=== PATIENT | female | born 1965 | race American Indian/Alaskan Native ===

== ENCOUNTER 2017-10-04 10:39 | Outpatient (CLI) | payer OTHER ==
--- NOTE | 2017-10-04 13:04 | Mammography Report ---
BILATERAL DIGITAL DIAGNOSTIC MAMMOGRAM with CAD and LEFT BREAST ULTRASOUND: 10/04/17 CLINICAL: Left breast pain. COMPARISON:None available. FINDINGS: The breasts are heterogeneously dense, which may obscure small masses.No mass, architectural distortion or suspicious calcifications. Ultrasound of the left breast (including all four quadrants and the retroareolar area) was performed and demonstrated normal fibroglandular and fatty structures. No mass, cyst or shadowing. A left axillary lymph node with central fat a benign morphology measures 1.3 x 0.8 x 0.6 cm. The lymph node is tender to palpation and correlates with the area of pain. IMPRESSION: Negative mammogramand negative left breast ultrasound. A benign left axillary lymph node correlates with the source of pain. BI-RADS CATEGORY: 2 -- Benign RECOMMENDATION: Clinical followup and routine mammographic screening in one year. COMMENT: Patient follow-up letters are generated by our [employer] application.
== END 2017-10-04 10:40 | disposition home or self-care (01) ==
LOC: SPVIMAG 10:39
PROVIDERS: ATTEND Family Medicine
DX: N64.4 Mastodynia (principal)
CPT/HCPCS: 77066

== ENCOUNTER 2020-07-28 15:30 | Outpatient (CLI) | payer OTHER | END 2020-07-28 15:31 | disposition home or self-care (01) | LOC: PF 15:30 | PROVIDERS: ATTEND Internal Medicine | DX: J45.909 Unspecified asthma, uncomplicated (principal); I10 Essential (primary) hypertension; E11.9 Type 2 diabetes mellitus without complications; K21.9 Gastro-esophageal reflux disease without esophagitis | CPT/HCPCS: 94010; 94729 ==